=== PATIENT | female | born 1960 | race Caucasian/White ===

== ENCOUNTER 2018-01-26 19:06 | Emergency (ER) | payer OTHER ==
--- NOTE | 2018-01-26 19:30 | PDOC ---
Rapid Medical Evaluation Chief Complaint: Pain, Acute Time Seen by Provider: 01/26/18 19:27 Medical Evaluation: 01/26/18 19:27 c/o right ankle pain and swelling s/p trip and fall yesterday. denies head injury PMHX: liver and kidney transplant, NIDDM, GERD PE: unable to weightbear, right ankle limited rom, + swelling A: ankle injury P; patient to fast track for further management of care. XRAY Discharge Disposition - Diagnosis Ankle pain, right Qualifiers: Chronicity: acute Qualified Code(s): M25.571 - Pain in right ankle and joints of right foot - Referrals - Patient Instructions - Post Discharge Activity
[2018-01-26 19:31] VITALS: BP 117/54; PULSE 104; TEMP 99.4; BMI 36.0
[2018-01-26] MEDS ORDERED: KETOROLAC TROMETHAMINE 60 MG/2 ML VIAL IM ONE (20:28)
[2018-01-26] MEDS ORDERED: KETOROLAC TROMETHAMINE 60 MG/2 ML VIAL ONE (20:29)
--- NOTE | 2018-01-26 20:45 | PDOC ---
History of Present Illness - General Chief Complaint: Pain, Acute Stated Complaint: PAIN Time Seen by Provider: 01/26/18 19:27 History Source: Patient Exam Limitations: Clinical Condition - History of Present Illness Initial Comments: 01/26/18 20:38 Patient with no significant past medical history presenting with complain of right ankle and foot pain after twisting her ankle while walking in her house yesterday on the box in the hallway. Patient reported she didnt feel much pain yesterday and was icing the ankle but started swelling more today reported increased pain with ambulation area denies hitting head doing fall or loss of consciousness Timing/Duration: 24 hours Past History - Past Medical History Allergies/Adverse Reactions: Allergies Allergy/AdvReac Type Severity Reaction Status Date / Time levofloxacin [From Levaquin] Allergy Verified 01/26/18 19:31 Penicillins Allergy Verified 01/26/18 19:31 Home Medications: Ambulatory Orders Glyburide 5 mg PO ASDIR 01/26/18 Ibuprofen 800 mg PO TID PRN #30 tablet 01/26/18 Levothyroxine [Synthroid -] 50 mcg PO DAILY 01/26/18 Losartan/Hydrochlorothiazide [Hyzaar 50-12.5 Tablet] 1 each PO ASDIR 01/26/18 Pioglitazone HCl 30 mg PO ASDIR 01/26/18 Prednisone 5 mg PO ASDIR 01/26/18 Sertraline HCl 100 mg PO ASDIR 01/26/18 Sitagliptin Phosphate [Januvia -] 100 mg PO ONCE 01/26/18 Ursodiol 500 mg PO ASDIR 01/26/18 COPD: No Diabetes: Yes GI Disorders: Yes (GERD) Liver Disease: Yes - Surgical History GI Surgery: Yes (LIVER TRANSPLANT) - Suicide/Smoking/Psychosocial Hx Smoking History: Never smoked Review of Systems - Review of Systems Able to Perform ROS?: Yes Is the patient limited Micronesian proficient: No Constitutional: No: Chills, Diaphoresis, Fever, Loss of Appetite, Malaise, Night Sweats, Weakness, Weight Stable, Unintentional Wgt. Loss, Unexplained wgt Loss, Other HEENTM: No: Eye Pain, Blurred Vision, Tearing, Recent change in vision, Double Vision, Cataracts, Ear Pain, Ocular Prothesis, Ear Discharge, Nose Pain, Nose Congestion, Tinnitus, Nose Bleeding, Hearing Loss, Throat Pain, Throat Swelling , Mouth Pain, Dental Problems, Difficulty Swallowing, Mouth Swelling, Other Respiratory: No: Cough, Orthopnea, Shortness of Breath, SOB with Exertion, SOB at Rest, Stridor, Wheezing, Productive cough, Hemoptysis, Other Cardiac (ROS): No: Chest Pain, Edema, Irregular Heart Rate, Lightheadedness, Palpitations, Syncope, Chest Tightness, Other ABD/GI: No: Abdominal Distended, Abd. Pain w/ defecation, Blood Streaked Bowels , Constipated, Diarrhea, Difficulty Swallowing, Nausea, Poor Appetite, Poor Fluid Intake, Rectal Bleeding, Vomiting, Indigestion, Abdominal cramping, Tarry Stools, Other Musculoskeletal: Yes: Joint Pain (right), Joint Swelling (right ankle), Muscle Pain (right ankle and foot) Integumentary: No: Bruising, Change in Color, Change in Hair/Nails, Dryness, Erythema, Flushing, Lesions, Lumps, Pallor, Pruritus, Rash, Sweating, Other All Other Systems: Reviewed and Negative *Physical Exam - Vital Signs Last Vital Signs Temp Pulse Resp BP Pulse Ox 99.4 F 104 H 18 117/54 96 01/26/18 19:27 01/26/18 19:27 01/26/18 19:27 01/26/18 19:27 01/26/18 19:27 - Physical Exam Comments: 01/26/18 20:41 GENERAL: Well developed, well nourished. Awake and alert. No acute distress. HEENT: Normocephalic, atraumatic. PERRLA, EOMI. No conjunctival pallor. Sclera are non- icteric. Moist mucous membranes. Oropharynx is clear. NECK: Supple. Full ROM. No JVD. Carotid pulses 2+ and symmetric, without bruits. No thyromegaly. No lymphadenopathy. CARDIOVASCULAR: Regular rate and rhythm. No murmurs, rubs, or gallops. Distal pulses are 2+ and symmetric. PULMONARY: No evidence of respiratory distress. Lungs clear to auscultation bilaterally. No wheezing, rales or rhonchi. ABDOMINAL: Soft. Non-tender. Non-distended. No rebound or guarding. No organomegaly. Normoactive bowel sounds. MUSCULOSKELETAL : Moderate tenderness over medial lateral malleolus of right ankle is worse with eversion of right ankle. Moderate swelling to medial lateral malleolus and dorsum of right foot.Normal range of motion at all joints. EXTREMITIES: Moderate swelling to right foot and ankle No cyanosis. No clubbing. No calf tenderness. SKIN: Warm and dry. Normal capillary refill. No rashes. No jaundice. NEUROLOGICAL: Alert, awake, appropriate. Cranial nerves 2-12 intact. No deficits to light touch and temperature in face, upper extremities and lower extremities. No motor deficits in the in face, upper extremities and lower extremities. Normoreflexic in the upper and lower extremities. Normal speech. Toes are down- going bilaterally. Gait is normal without ataxia. PSYCHIATRIC: Cooperative. Good eye contact. Appropriate mood and affect. General Appearance: Yes: Nourished, Appropriately Dressed. No: Apparent Distress ED Treatment Course - Medications Given in the ED: ED Medications Discontinued Medications Generic Name Dose Route Start Last Admin Trade Name Freq PRN Reason Stop Dose Admin Ketorolac Tromethamine 60 mg 01/26/18 20:28 01/26/18 20:36 Toradol Injection - IM 01/26/18 20:29 60 mg ONCE ONE Administration Medical Decision Making - Medical Decision Making 01/26/18 20:43 Patient presenting with ankle and foot pain and swelling status post tripping on a box at home last night. Patient with increased pain with ambulation and unable to weight on the ankle. X-ray of right ankle and foot shows no fracture dislocation. Patient will be discharged home with ankle support brace, pallavi wrap and NSAIDs with orthopedics follow-up. Patient advised to keep leg elevated and keep weight off the ankle with provided crutches. toradol 60mg IM given for pain 01/26/18 20:45 *DC/Admit/Observation/Transfer Diagnosis at time of Disposition: Ankle pain, right Qualifiers: Chronicity: acute Qualified Code(s): M25.571 - Pain in right ankle and joints of right foot - Discharge Dispostion Disposition: HOME Condition at time of disposition: Stable - Prescriptions Prescriptions: Ibuprofen 800 mg PO TID PRN #30 tablet PRN Reason: ankle pain - Referrals Referrals: Santi James MD [Primary Care Provider] - Chao Melo MD [Staff Physician] - - Patient Instructions Printed Discharge Instructions: Ankle Sprain, DI for Ankle Sprain Additional Instructions: Take medication as prescribed as needed for pain. Keep leg elevated and keep weight of the ankle for at least 3 days. Walk with provided crutches. Ambulate as tolerated after 3 days and keep a ankle brace on until symptoms resolve. Follow up with orthopedics if no improvement in 5 days - Post Discharge Activity Forms/Work/School Notes: Back to Work
== END 2018-01-26 21:17 | disposition home or self-care (01) ==
LOC: JERFT 19:06
PROC: 3E0233Z Introduction of Anti-inflammatory into Muscle, Percutaneous Approach (ICD-10-PCS; principal; 2018-01-26)
PROC: 2W3QX1Z Immobilization of Right Lower Leg using Splint (ICD-10-PCS; 2018-01-26)
DX: S99.811A Other specified injuries of right ankle, initial encounter (principal); W18.09XA Striking against other object with subsequent fall, initial encounter; Y93.89 Activity, other specified; Y92.038 Other place in apartment as the place of occurrence of the external cause; Y99.8 Other external cause status; E11.9 Type 2 diabetes mellitus without complications; Z79.84 Long term (current) use of oral hypoglycemic drugs; K21.9 Gastro-esophageal reflux disease without esophagitis; Z94.0 Kidney transplant status; Z94.4 Liver transplant status
CPT/HCPCS: 73610-TC-RT-FY; 73630-TC-RT-FY; 99281-25

== ENCOUNTER 2020-01-25 19:31 | Emergency (ER) | payer OTHER ==
--- NOTE | 2020-01-25 19:40 | PDOC ---
Rapid Medical Evaluation Chief Complaint: Pain Time Seen by Provider: 01/25/20 19:35 Medical Evaluation: Allergies Allergy/AdvReac Type Severity Reaction Status Date / Time levofloxacin [From Levaquin] Allergy Verified 01/26/18 19:31 Penicillins Allergy Verified 01/26/18 19:31 01/25/20 19:35 Pt presents for evaluation of L arm pain for two weeks. She also notes she has R shoulder pain as well. States that her pain initially started in the elbow and is worse with movement. Exam: pain with flexion of the L elbow Orders: elbow x-ray Pt to proceed to the ER for further evaluation Discharge Disposition - Diagnosis Elbow pain, left - Referrals - Patient Instructions - Post Discharge Activity
[2020-01-25 19:41] VITALS: BP 140/57; PULSE 90; TEMP 97.3; BMI 39.4
--- NOTE | 2020-01-25 20:47 | PDOC ---
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 Patient denies any distinct injury chest pain, weakness of the extremity, shortness of breath, rash, or swelling. Is this a multiple visit Asthma Patient?: No Timing/Duration: other Severity: mild Associated Symptoms: reports: denies symptoms Past History - Travel History Traveled outside of the country in the last 30 days: No Close contact w/someone who was outside of country & ill: No - Medical History Allergies/Adverse Reactions: Allergies Allergy/AdvReac Type Severity Reaction Status Date / Time levofloxacin [From Levaquin] Allergy Verified 01/25/20 19:41 Penicillins Allergy Verified 01/25/20 19:41 Home Medications: Ambulatory Orders Glyburide 5 mg PO ASDIR 01/26/18 Ibuprofen 800 mg PO TID PRN #30 tablet 01/26/18 Levothyroxine [Synthroid -] 50 mcg PO DAILY 01/26/18 Losartan/Hydrochlorothiazide [Hyzaar 50-12.5 Tablet] 1 each PO ASDIR 01/26/18 Pioglitazone HCl 30 mg PO ASDIR 01/26/18 Prednisone 5 mg PO ASDIR 01/26/18 Sertraline HCl 100 mg PO ASDIR 01/26/18 Sitagliptin Phosphate [Januvia -] 100 mg PO ONCE 01/26/18 Ursodiol 500 mg PO ASDIR 01/26/18 Cancer: Yes (renal cell carcinoma) COPD: No Diabetes: Yes GI Disorders: Yes (GERD) Liver Disease: Yes Other medical history: gout - Surgical History GI Surgery: Yes (LIVER TRANSPLANT) - Psycho-Social/Smoking History Patient Lives Alone: No Lives with/in: spouse/SO Smoking History: Never smoked - Substance Abuse Hx (Audit-C & DAST Scrn) How often the patient has a drink containing alcohol: Never Score: In Men: 4 or > Positive; In Women: 3 or > Positive: 0 Screen Result (Pos requires Nsg. Audit-10AR): Negative Review of Systems - Review of Systems Able to Perform ROS?: Yes Is the patient limited Turkmen proficient: No Constitutional: No: Symptoms Reported HEENTM: No: Symptoms Reported Respiratory: No: Symptoms reported Cardiac (ROS): No: Symptoms Reported ABD/GI: No: Symptoms Reported : No: Symptoms Reported Musculoskeletal: Yes: Joint Pain, Muscle Pain. No: Neck Pain Integumentary: No: Symptoms Reported Neurological: No: Symptoms reported Endocrine: No: Symptoms Reported Hematologic/Lymphatic: No: Symptoms Reported *Physical Exam - Vital Signs Last Vital Signs Temp Pulse Resp BP Pulse Ox 97.3 F L 90 18 140/57 L 97 01/25/20 19:36 01/25/20 19:36 01/25/20 19:36 01/25/20 19:36 01/25/20 19:36 - Physical Exam General Appearance: Yes: Nourished, Appropriately Dressed. No: Apparent Dist ress HEENT: negative: Pale Conjunctivae Neck: positive: Supple. negative: Tender, Decreased range of motion, Tender lateral, Tender midline, Thyromegaly Respiratory/Chest: positive: Lungs Clear, Normal Breath Sounds. negative: Chest Tender, Respiratory Distress, Accessory Muscle Use Cardiovascular: positive: Regular Rhythm, Regular Rate. negative: Murmur Extremity: positive: Normal Capillary Refill, Normal Inspection, Tender (Anterior aspect of right shoulder). negative: Normal Range of Motion (Unable to perform right shoulder lateral raise greater than 80 degrees) Integumentary: positive: Normal Color, Warm, Moist Neurologic: positive: Motor Strength 5/5 (5+ hand grasp of the right and left hand) Heart Score/ECG Review - ECG Intrepretation Rhythm: Regular Rhythm (Normal sinus rhythm intervals are regular rate 87) Medical Decision Making - Medical Decision Making 01/25/20 20:45 Chief complaint: Patient here for for evaluation of left arm pain which she describes as sharp and electric type sensation along with right shoulder pain worsened with lateral raise. Patient states symptoms have been present for few weeks but progressively have worsened. 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 Exam: Patient with decreased lateral raise of the right shoulder along with tenderness to the area. Otherwise normal PE. Plan: X-ray ordered from [facility]. Will do an EKG based on patient's age and medical history Discharge - Discharge Information Problems reviewed: Yes Clinical Impression/Diagnosis: Cervical radiculopathy Condition: Good Disposition: HOME - Follow up/Referral Referrals: Ty Bhardwaj MD [Primary Care Provider] - - Patient Discharge Instructions Patient Printed Discharge Instructions: DI for Cervical Radiculopathy Additional Instructions: At this time I do recommend receiving an MRI to evaluate your shoulder along with your cervical spine. Otherwise I recommend taking Motrin for discomfort and proper positioning while sleeping and standing to promote proper alignment of the spine - Post Discharge Activity
--- NOTE | 2020-01-27 17:34 | EKG ---
Test Reason : Blood Pressure : / mmHG Vent. Rate : 087 BPM Atrial Rate : 087 BPM P-R Int : 172 ms QRS Dur : 086 ms QT Int : 388 ms P-R-T Axes : 057 054 060 degrees QTc Int : 466 ms NORMAL SINUS RHYTHM NORMAL ECG NO PREVIOUS ECGS AVAILABLE Confirmed by MD Halina, Vick ([id number]) on 01/27/2020 5:33:48 PM Referred By: Confirmed By:Vick Meade MD
== END 2020-01-25 20:59 | disposition home or self-care (01) ==
LOC: JERFT 19:31
DX: M54.12 Radiculopathy, cervical region (principal)
CPT/HCPCS: 73070-TC-LT-FY; 93005; 93010; 99284-25

== ENCOUNTER 2020-06-02 17:11 | Emergency (ER) | payer OTHER ==
[2020-06-02 17:51] VITALS: BMI 38.9
[2020-06-02 18:58] LABS: BASO % 0.5 % (0-2.0); EOS % 2.5 % (0-4.5); HEMOGLOBIN 13.1 GM/dL (10.7-15.3); LYMPH % 23.4 % (8-40); MCH 27.4 pg (25.7-33.7); MEAN CELL VOLUME 85.7 fl (80-96); MEAN PLT VOLUME 9.8 fl (7.5-11.1); MONO % 8.5 % (3.8-10.2); NEUT % 65.1 % (42.8-82.8); PLATELET COUNT 150 K/MM3 (134-434); RBC 4.78 M/mm3 (3.60-5.2); RDW 15.3 % (11.6-15.6); WHITE BLOOD COUNT 9.2 K/mm3 (4.0-10.0)
[2020-06-02 19:03] LABS: INR 1.09 (0.83-1.09); PROTHROMBIN TIME (PATIENT) 13.2 SEC (9.7-13.0)
[2020-06-02 19:26] LABS: CHLORIDE 102 mmol/L (98-107); POTASSIUM 3.6 mmol/L (3.5-5.1); SODIUM 137 mmol/L (136-145)
[2020-06-02 19:29] LABS: ALBUMIN 4.1 g/dl (3.4-5.0); ANION GAP 8 MMOL/L (8-16); BLOOD UREA NITROGEN 30.2 mg/dL (7-18); CALCIUM 9.5 mg/dL (8.5-10.1); CO2 27 mmol/L (21-32); GLUCOSE,RANDOM 143 mg/dL (74-106)
[2020-06-02 19:32] LABS: CREATININE 1.3 mg/dL (0.55-1.3); SGOT/AST 20 U/L (15-37); SGPT/ALT 37 U/L (13-61)
[2020-06-02 19:33] LABS: BILIRUBIN,TOTAL 0.4 mg/dL (0.2-1)
[2020-06-02 19:34] LABS: TOT PROT 7.5 g/dl (6.4-8.2)
[2020-06-02 19:35] LABS: ALK PHOS 111 U/L (45-117)
[2020-06-02] MEDS ORDERED: LIDOCAINE 5% TOPICAL PATCH TP ONE (19:35)
[2020-06-02] MEDS ORDERED: diazePAM 5 MG TABLET PO ONE (19:35)
[2020-06-02] MEDS ORDERED: ACETAMINOPHEN 1000 MG/100 ML VIAL (NON FORMULARY) IVPB ONE (19:36)
[2020-06-02 19:37] LABS: N-TERMINAL BNP 178.6 pg/ml (5-125)
[2020-06-02] MEDS ORDERED: diazePAM 5 MG TABLET ONE (20:13)
[2020-06-02] MEDS ORDERED: LIDOCAINE 5% TOPICAL PATCH ONE (20:14)
[2020-06-02] MEDS ORDERED: ACETAMINOPHEN INJECTION 100 ML IVPB ONE (20:14)
[2020-06-02] MEDS ORDERED: LIDOCAINE PATCH REMOVAL MC SCH (22:00)
[2020-06-02] MEDS ORDERED: ATORVASTATIN CA 80 MG TABLET (FP) ONE (22:01)
[2020-06-02 23:38] VITALS: BP 135/61; PULSE 84
[2020-06-02 23:39] VITALS: TEMP 97.8
== END 2020-06-03 | disposition home or self-care (01) ==
LOC: JER 17:11
PROC: 3E0333Z Introduction of Anti-inflammatory into Peripheral Vein, Percutaneous Approach (ICD-10-PCS; principal; 2020-06-02)
DX: M25.512 Pain in left shoulder (principal)
CPT/HCPCS: 36415; 71046-TC-FY; 73030-TC-LT-FY; 80053; 82010; 82550; 83880; 84484; 85025; 85610; 93005; 93010; 99285-25; J0131